=== PATIENT | female | born 1935 | race African-American/Black ===

== ENCOUNTER 2017-06-22 10:13 | Inpatient (IN) | payer OTHER, MEDICARE ==
[2017-06-22 11:49] LABS: BILIRUBIN,URINE SMALL (NEG); CLARITY,URINE CLEAR; COLOR,URINE ORANGE; GLUCOSE,URINE NEGATIVE (NEG); NITRITE,URINE POSITIVE (NEG); PROTEIN,URINE >=300 mg/dL (NEG-TRACE)
[2017-06-22 12:00] LABS: RBC,URINE TNTC /HPF (0-2)
[2017-06-22 12:01] LABS: BACTERIA,URINE 0 /HPF (0-FEW)
[2017-06-22] MEDS: IV NORMAL SALINE 1000ML BAG 1,000 ML IV (12:10)
[2017-06-22 12:16] LABS: ADD MAN DIFF? NO
[2017-06-22 12:19] LABS: BASO % 0 % (0-3); EOS % 0 % (0-3); HEMATOCRIT 28.3 % (36.0-47.0); LYMPH # 3.2 x10^3/uL (1.0-4.8); LYMPH % 52 % (24-48); MEAN CORPUSCULAR HEMOGLOBIN 28 pg (25-35); MEAN CORPUSCULAR HGB CONC 32 g/dL (31-37); MEAN CORPUSCULAR VOLUME 88 fL (79-100); MONO # 0.7 x10^3/uL (0.0-1.1); MONO % 12 % (0-9); NEUT # 2.2 x10^3uL (1.8-7.7); NEUT % 36 % (31-73); PLATELET COUNT 110 x10^3/uL (140-400); RED BLOOD COUNT 3.22 x10^6/uL (3.50-5.40); RED CELL DISTRIBUTION WIDTH 20.1 % (11.5-14.5); WHITE BLOOD COUNT 6.2 x10^3/uL (4.0-11.0)
[2017-06-22 12:28] LABS: INR 1.8 (0.8-1.1); PROTHROMBIN TIME PATIENT 19.9 SEC (11.7-14.0)
[2017-06-22 12:39] LABS: ANION GAP 9 (6-14); BLOOD UREA NITROGEN 18 mg/dL (7-20); CALCIUM 8.5 mg/dL (8.5-10.1); CARBON DIOXIDE 28 mmol/L (21-32); CHLORIDE 102 mmol/L (98-107); GFR 64.2; GLUCOSE 108 mg/dL (70-99); POTASSIUM 3.4 mmol/L (3.5-5.1); SODIUM 139 mmol/L (136-145)
[2017-06-22 12:44] LABS: ALBUMIN 2.7 g/dL (3.4-5.0); ALK PHOS 49 U/L (46-116); ALT (SGPT) 21 U/L (14-59); AST (SGOT) 30 U/L (15-37); DIRECT BILIRUBIN 0.1 mg/dL (0.0-0.2); LIPASE 195 U/L (73-393); MAGNESIUM 1.6 mg/dL (1.8-2.4); TOTAL BILIRUBIN 0.4 mg/dL (0.2-1.0); TOTAL PROTEIN 5.8 g/dL (6.4-8.2)
[2017-06-22 12:45] LABS: TROPONINI 0.036 ng/mL (0.000-0.055)
[2017-06-22 12:54] LABS: CKMB MASS 0.7 ng/mL (0.0-3.6); CREATINE KINASE 64 U/L (26-192)
[2017-06-22 12:54] LABS: NT-PRO BNP 78 pg/mL (0-449)
[2017-06-22] MEDS: PHENAZOPYRIDINE 200 MG TABLET. PO (13:42)
[2017-06-22] MEDS: fentaNYL PF VIAL 100 MCG/2 ML VIAL IV (13:43)
[2017-06-22] MEDS ORDERED: ONDANSETRON PF 4 MG/2 ML VIAL. IV (14:00)
[2017-06-22] MEDS ORDERED: MEROPENEM 1 GM in IV NORMAL SALINE 100ML 100 ML IV (14:00)
[2017-06-22 14:29] LABS: % EOS 1 % (0-5); ANISOCYTOSIS SLIGHT; OVALOCYTES OCC; PLT ESTIMATE DECREASED (ADEQUATE); POLYCHROMASIA SLIGHT; SCHISTOCYTES OCC
[2017-06-22 14:30] LABS: % SEGS 45 % (35-66)
[2017-06-22 14:31] LABS: % LYMPHS 43 % (24-48); % MONOS 11 % (0-10)
[2017-06-22] MEDS: ASPIRIN 325 MG TABLET PO (15:02)
[2017-06-22 15:52] LABS: POC GLUCOSE 84 mg/dL (70-99)
[2017-06-22] MEDS ORDERED: NON FORMULARY ITEM (Albuterol Sulfate (Proair Hfa Inhaler) 1 PUFF) INH (17:00)
[2017-06-22] MEDS ORDERED: MAGNESIUM HYDROXIDE 2,400 MG/30 ML ORAL.SUSP. PO (17:00)
[2017-06-22] MEDS: metFORMIN 500 MG TABLET PO (17:23)
[2017-06-22] MEDS: ACETAMINOPHEN 500 MG TABLET PO (17:24)
[2017-06-22] MEDS: CARVEDILOL 12.5 MG TABLET. PO (17:24)
[2017-06-22] MEDS: WARFARIN 5 MG TABLET. PO (17:25)
[2017-06-22] MEDS: INSULIN ASPART 300 UNITS/3 ML INSULN.PEN SQ (17:31)
[2017-06-22 20:27] LABS: POC GLUCOSE 96 mg/dL (70-99)
[2017-06-22] MEDS: traZODone 50 MG TABLET. PO (20:51)
[2017-06-22] MEDS: POLYVINYL ALCOHOL 1.4% OPHTH SOLUTION 15ML BOTTLE. OU (20:51)
[2017-06-22] MEDS: GABAPENTIN 100 MG CAPSULE. PO (20:51)
[2017-06-22] MEDS: INSULIN DETEMIR 300 UNITS/3 ML INSULN.PEN. SQ (20:52)
[2017-06-23] MEDS: PHENAZOPYRIDINE 200 MG TABLET. PO (03:19)
[2017-06-23] MEDS: ACETAMINOPHEN 500 MG TABLET PO (03:19)
[2017-06-23 05:17] LABS: ADD MAN DIFF? NO
[2017-06-23 05:34] LABS: BASO % 0 % (0-3); EOS % 0 % (0-3); HEMATOCRIT 25.8 % (36.0-47.0); HEMOGLOBIN 8.3 g/dL (12.0-15.5); LYMPH # 3.3 x10^3/uL (1.0-4.8); LYMPH % 52 % (24-48); MEAN CORPUSCULAR HEMOGLOBIN 28 pg (25-35); MEAN CORPUSCULAR HGB CONC 32 g/dL (31-37); MEAN CORPUSCULAR VOLUME 88 fL (79-100); MONO # 0.8 x10^3/uL (0.0-1.1); MONO % 12 % (0-9); NEUT # 2.2 x10^3uL (1.8-7.7); NEUT % 35 % (31-73); PLATELET COUNT 104 x10^3/uL (140-400); RED BLOOD COUNT 2.93 x10^6/uL (3.50-5.40); WHITE BLOOD COUNT 6.3 x10^3/uL (4.0-11.0)
[2017-06-23 05:52] LABS: ALBUMIN 2.4 g/dL (3.4-5.0); ALBUMIN/GLOBULIN RATIO 0.7 (1.0-1.7); ALK PHOS 45 U/L (46-116); ALT (SGPT) 20 U/L (14-59); ANION GAP 8 (6-14); AST (SGOT) 28 U/L (15-37); BLOOD UREA NITROGEN 17 mg/dL (7-20); BUN/CREATININE RATIO 14 (6-20); CALCIUM 8.2 mg/dL (8.5-10.1); CARBON DIOXIDE 27 mmol/L (21-32); CHLORIDE 106 mmol/L (98-107); CREATININE 1.2 mg/dL (0.6-1.0); GLUCOSE 97 mg/dL (70-99); POTASSIUM 3.1 mmol/L (3.5-5.1); SODIUM 141 mmol/L (136-145); TOTAL BILIRUBIN 0.3 mg/dL (0.2-1.0); TOTAL PROTEIN 5.7 g/dL (6.4-8.2)
[2017-06-23] MEDS: INSULIN ASPART 300 UNITS/3 ML INSULN.PEN SQ ×3 (07:30→16:30)
[2017-06-23 07:49] LABS: POC GLUCOSE 103 mg/dL (70-99)
[2017-06-23] MEDS: metFORMIN 500 MG TABLET PO ×2 (07:53→16:44)
[2017-06-23] MEDS: PANTOPRAZOLE 40 MG TABLET.DR. PO (07:53)
[2017-06-23] MEDS: POTASSIUM CHLORIDE 20 MEQ TABLET.ER. PO (07:54)
[2017-06-23] MEDS: CARVEDILOL 12.5 MG TABLET. PO ×2 (07:54→16:45)
[2017-06-23] MEDS: POLYVINYL ALCOHOL 1.4% OPHTH SOLUTION 15ML BOTTLE. OU ×3 (09:15→20:35)
[2017-06-23] MEDS: hydroCHLOROthiazide 25 MG TABLET PO (09:16)
[2017-06-23] MEDS: LISINOPRIL 20 MG TABLET PO (09:16)
[2017-06-23] MEDS: predniSONE 10 MG TABLET PO (09:16)
[2017-06-23] MEDS: GABAPENTIN 100 MG CAPSULE. PO ×3 (09:17→20:36)
[2017-06-23] MEDS: MONTELUKAST SODIUM 10 MG TABLET. PO (09:17)
[2017-06-23] MEDS: amLODIPine BESYLATE 10 MG TABLET PO (09:17)
[2017-06-23] MEDS: valACYclovir 500 MG TABLET. PO (09:17)
[2017-06-23] MEDS: RALOXIFENE 60 MG TABLET. PO (09:17)
[2017-06-23] MEDS: NYSTATIN TOPICAL POWDER 15GM BOTTLE. TP ×2 (09:54→20:36)
[2017-06-23 11:26] LABS: POC GLUCOSE 176 mg/dL (70-99)
[2017-06-23] MEDS: HYDROcodone/APAP 5/325MG 1 TAB TABLET PO ×2 (13:49→20:33)
[2017-06-23] MEDS: FLUCONAZOLE 100 MG TABLET. PO (13:49)
[2017-06-23 16:17] LABS: POC GLUCOSE 150 mg/dL (70-99)
[2017-06-23] MEDS: WARFARIN 5 MG TABLET. PO (16:45)
[2017-06-23] MEDS: FERROUS SULFATE 325 MG TABLET. PO (16:45)
[2017-06-23] MEDS: ALBUTEROL SULFATE 2.5 MG/3 ML NEBU. NEB (18:31)
[2017-06-23] MEDS: LACTOBACILLUS RHAMNOSUS GG 1 CAPSULE. PO (20:35)
[2017-06-23] MEDS: traZODone 50 MG TABLET. PO (20:36)
[2017-06-23] MEDS: INSULIN DETEMIR 300 UNITS/3 ML INSULN.PEN. SQ (20:43)
[2017-06-23 20:46] LABS: POC GLUCOSE 158 mg/dL (70-99)
[2017-06-24] MEDS: PHENAZOPYRIDINE 200 MG TABLET. PO ×3 (03:10→20:57)
[2017-06-24 04:36] LABS: ADD MAN DIFF? NO
[2017-06-24 05:12] LABS: BASO % 0 % (0-3); EOS % 0 % (0-3); HEMOGLOBIN 7.5 g/dL (12.0-15.5); LYMPH # 2.9 x10^3/uL (1.0-4.8); LYMPH % 58 % (24-48); MEAN CORPUSCULAR HEMOGLOBIN 27 pg (25-35); MEAN CORPUSCULAR HGB CONC 31 g/dL (31-37); MEAN CORPUSCULAR VOLUME 88 fL (79-100); MONO # 0.6 x10^3/uL (0.0-1.1); MONO % 11 % (0-9); NEUT # 1.5 x10^3uL (1.8-7.7); NEUT % 30 % (31-73); PLATELET COUNT 111 x10^3/uL (140-400); RED BLOOD COUNT 2.73 x10^6/uL (3.50-5.40)
[2017-06-24 05:19] LABS: INR 1.8 (0.8-1.1); PROTHROMBIN TIME PATIENT 20.5 SEC (11.7-14.0)
[2017-06-24 05:34] LABS: ANION GAP 7 (6-14); BLOOD UREA NITROGEN 17 mg/dL (7-20); CALCIUM 7.9 mg/dL (8.5-10.1); CARBON DIOXIDE 27 mmol/L (21-32); CHLORIDE 104 mmol/L (98-107); CREATININE 1.2 mg/dL (0.6-1.0); GLUCOSE 133 mg/dL (70-99); POTASSIUM 3.2 mmol/L (3.5-5.1); SODIUM 138 mmol/L (136-145)
[2017-06-24] MEDS: PANTOPRAZOLE 40 MG TABLET.DR. PO (07:22)
[2017-06-24 08:05] LABS: POC GLUCOSE 113 mg/dL (70-99)
[2017-06-24] MEDS: RALOXIFENE 60 MG TABLET. PO (08:12)
[2017-06-24] MEDS: POTASSIUM CHLORIDE 20 MEQ TABLET.ER. PO ×2 (08:12→17:21)
[2017-06-24] MEDS: metFORMIN 500 MG TABLET PO ×2 (08:13→17:22)
[2017-06-24] MEDS: LACTOBACILLUS RHAMNOSUS GG 1 CAPSULE. PO ×2 (08:13→20:58)
[2017-06-24] MEDS: amLODIPine BESYLATE 10 MG TABLET PO (08:13)
[2017-06-24] MEDS: LISINOPRIL 20 MG TABLET PO (08:13)
[2017-06-24] MEDS: FERROUS SULFATE 325 MG TABLET. PO (08:13)
[2017-06-24] MEDS: GABAPENTIN 100 MG CAPSULE. PO ×3 (08:13→20:57)
[2017-06-24] MEDS: valACYclovir 500 MG TABLET. PO (08:14)
[2017-06-24] MEDS: POLYVINYL ALCOHOL 1.4% OPHTH SOLUTION 15ML BOTTLE. OU ×3 (08:14→21:04)
[2017-06-24] MEDS: MONTELUKAST SODIUM 10 MG TABLET. PO (08:14)
[2017-06-24] MEDS: CARVEDILOL 12.5 MG TABLET. PO ×2 (08:14→17:21)
[2017-06-24] MEDS: NYSTATIN TOPICAL POWDER 15GM BOTTLE. TP ×2 (08:14→20:58)
[2017-06-24] MEDS: INSULIN ASPART 300 UNITS/3 ML INSULN.PEN SQ ×3 (08:26→17:28)
[2017-06-24] MEDS: predniSONE 10 MG TABLET PO (08:29)
[2017-06-24] MEDS: hydroCHLOROthiazide 25 MG TABLET PO (09:44)
[2017-06-24] MEDS: ALBUTEROL SULFATE 2.5 MG/3 ML NEBU. NEB (10:19)
[2017-06-24] MEDS: HYDROcodone/APAP 5/325MG 1 TAB TABLET PO (11:51)
[2017-06-24 11:57] LABS: POC GLUCOSE 144 mg/dL (70-99)
[2017-06-24] MEDS: WARFARIN 5 MG TABLET. PO (17:22)
[2017-06-24 17:39] LABS: POC GLUCOSE 160 mg/dL (70-99)
[2017-06-24 20:26] LABS: POC GLUCOSE 122 mg/dL (70-99)
[2017-06-24] MEDS: traZODone 50 MG TABLET. PO (20:58)
[2017-06-24] MEDS: INSULIN DETEMIR 300 UNITS/3 ML INSULN.PEN. SQ (21:03)
[2017-06-25] MEDS: ACETAMINOPHEN 500 MG TABLET PO (02:33)
[2017-06-25] MEDS: ALBUTEROL SULFATE 2.5 MG/3 ML NEBU. NEB (06:02)
[2017-06-25 06:49] LABS: ANION GAP 7 (6-14); BLOOD UREA NITROGEN 16 mg/dL (7-20); CALCIUM 8.2 mg/dL (8.5-10.1); CARBON DIOXIDE 26 mmol/L (21-32); CHLORIDE 106 mmol/L (98-107); CREATININE 1.3 mg/dL (0.6-1.0); GFR 47.5; GLUCOSE 96 mg/dL (70-99); POTASSIUM 3.6 mmol/L (3.5-5.1); SODIUM 139 mmol/L (136-145)
[2017-06-25] MEDS: INSULIN ASPART 300 UNITS/3 ML INSULN.PEN SQ ×3 (07:30→17:22)
[2017-06-25 07:41] LABS: POC GLUCOSE 89 mg/dL (70-99)
[2017-06-25] MEDS: PHENAZOPYRIDINE 200 MG TABLET. PO ×3 (08:10→20:30)
[2017-06-25] MEDS: predniSONE 10 MG TABLET PO (08:10)
[2017-06-25] MEDS: valACYclovir 500 MG TABLET. PO (08:10)
[2017-06-25] MEDS: FERROUS SULFATE 325 MG TABLET. PO (08:10)
[2017-06-25] MEDS: RALOXIFENE 60 MG TABLET. PO (08:10)
[2017-06-25] MEDS: metFORMIN 500 MG TABLET PO (08:11)
[2017-06-25] MEDS: amLODIPine BESYLATE 10 MG TABLET PO (08:11)
[2017-06-25] MEDS: MONTELUKAST SODIUM 10 MG TABLET. PO (08:11)
[2017-06-25] MEDS: POTASSIUM CHLORIDE 20 MEQ TABLET.ER. PO ×2 (08:11→17:17)
[2017-06-25] MEDS: LISINOPRIL 20 MG TABLET PO (08:11)
[2017-06-25] MEDS: LACTOBACILLUS RHAMNOSUS GG 1 CAPSULE. PO ×2 (08:12→20:29)
[2017-06-25] MEDS: NYSTATIN TOPICAL POWDER 15GM BOTTLE. TP ×2 (08:12→20:30)
[2017-06-25] MEDS: PANTOPRAZOLE 40 MG TABLET.DR. PO (08:12)
[2017-06-25] MEDS: GABAPENTIN 100 MG CAPSULE. PO ×3 (08:12→20:29)
[2017-06-25] MEDS: hydroCHLOROthiazide 25 MG TABLET PO (08:12)
[2017-06-25] MEDS: POLYVINYL ALCOHOL 1.4% OPHTH SOLUTION 15ML BOTTLE. OU ×3 (08:12→20:29)
[2017-06-25] MEDS: CARVEDILOL 12.5 MG TABLET. PO ×2 (08:12→17:17)
[2017-06-25 11:40] LABS: POC GLUCOSE 155 mg/dL (70-99)
[2017-06-25] MEDS: traMADol 50 MG TABLET PO ×2 (14:03→20:00)
[2017-06-25 14:11] LABS: CLARITY,URINE CLOUDY
[2017-06-25 14:22] LABS: COLOR,URINE ORANGE
[2017-06-25 14:25] LABS: BACTERIA,URINE 0 /HPF (0-FEW); RBC,URINE TNTC /HPF (0-2)
[2017-06-25] MEDS ORDERED: CONTRAST GIVEN MC (14:30)
[2017-06-25] MEDS: IOHEXOL 300 MG/ML 100ML VIAL. IV (15:02)
[2017-06-25] MEDS: WARFARIN 5 MG TABLET. PO (15:22)
[2017-06-25 16:39] LABS: POC GLUCOSE 129 mg/dL (70-99)
[2017-06-25 20:23] LABS: POC GLUCOSE 147 mg/dL (70-99)
[2017-06-25] MEDS: traZODone 50 MG TABLET. PO (20:30)
[2017-06-25] MEDS: INSULIN DETEMIR 300 UNITS/3 ML INSULN.PEN. SQ (20:34)
[2017-06-26] MEDS: ACETAMINOPHEN 500 MG TABLET PO ×3 (02:06→15:40)
[2017-06-26] MEDS: traMADol 50 MG TABLET PO ×3 (02:06→15:40)
[2017-06-26] MEDS: INSULIN ASPART 300 UNITS/3 ML INSULN.PEN SQ ×3 (07:30→17:18)
[2017-06-26 07:41] LABS: HEMATOCRIT 24.7 % (36.0-47.0); HEMOGLOBIN 7.8 g/dL (12.0-15.5); MEAN CORPUSCULAR HEMOGLOBIN 28 pg (25-35); MEAN CORPUSCULAR HGB CONC 32 g/dL (31-37); MEAN CORPUSCULAR VOLUME 88 fL (79-100); PLATELET COUNT 125 x10^3/uL (140-400); RED CELL DISTRIBUTION WIDTH 20.7 % (11.5-14.5); WHITE BLOOD COUNT 5.1 x10^3/uL (4.0-11.0)
[2017-06-26] MEDS: ALBUTEROL SULFATE 2.5 MG/3 ML NEBU. NEB (07:52)
[2017-06-26 07:54] LABS: INR 1.9 (0.8-1.1); PROTHROMBIN TIME PATIENT 21.4 SEC (11.7-14.0)
[2017-06-26] MEDS: POTASSIUM CHLORIDE 20 MEQ TABLET.ER. PO ×2 (08:00→17:00)
[2017-06-26 08:02] LABS: POC GLUCOSE 86 mg/dL (70-99)
[2017-06-26 08:03] LABS: ANION GAP 6 (6-14); BLOOD UREA NITROGEN 15 mg/dL (7-20); CALCIUM 8.3 mg/dL (8.5-10.1); CARBON DIOXIDE 27 mmol/L (21-32); CHLORIDE 104 mmol/L (98-107); GFR 64.2; GLUCOSE 92 mg/dL (70-99); POTASSIUM 3.8 mmol/L (3.5-5.1); SODIUM 137 mmol/L (136-145)
[2017-06-26] MEDS: FERROUS SULFATE 325 MG TABLET. PO (08:08)
[2017-06-26] MEDS: PANTOPRAZOLE 40 MG TABLET.DR. PO (08:08)
[2017-06-26] MEDS: CARVEDILOL 12.5 MG TABLET. PO ×2 (08:10→17:14)
[2017-06-26] MEDS: hydroCHLOROthiazide 25 MG TABLET PO (08:42)
[2017-06-26] MEDS: RALOXIFENE 60 MG TABLET. PO (08:42)
[2017-06-26] MEDS: LACTOBACILLUS RHAMNOSUS GG 1 CAPSULE. PO ×2 (08:42→20:18)
[2017-06-26] MEDS: POLYVINYL ALCOHOL 1.4% OPHTH SOLUTION 15ML BOTTLE. OU ×3 (08:42→20:17)
[2017-06-26] MEDS: PHENAZOPYRIDINE 200 MG TABLET. PO ×3 (08:42→20:17)
[2017-06-26] MEDS: GABAPENTIN 100 MG CAPSULE. PO ×3 (08:42→20:18)
[2017-06-26] MEDS: NYSTATIN TOPICAL POWDER 15GM BOTTLE. TP ×2 (08:42→20:17)
[2017-06-26] MEDS: predniSONE 10 MG TABLET PO (08:43)
[2017-06-26] MEDS: MONTELUKAST SODIUM 10 MG TABLET. PO (08:43)
[2017-06-26] MEDS: LISINOPRIL 20 MG TABLET PO (08:43)
[2017-06-26] MEDS: amLODIPine BESYLATE 10 MG TABLET PO (08:43)
[2017-06-26] MEDS: valACYclovir 500 MG TABLET. PO (08:43)
[2017-06-26 11:51] LABS: POC GLUCOSE 146 mg/dL (70-99)
[2017-06-26] MEDS: WARFARIN 5 MG TABLET. PO (15:39)
[2017-06-26 16:54] LABS: POC GLUCOSE 207 mg/dL (70-99)
[2017-06-26] MEDS: LIDOCAINE 2% TOPICAL JELLY 5GM TUBE. TP (19:23)
[2017-06-26] MEDS: OPIUM/BELLADONNA 30/16.2MG SUPP.RECT. PR (19:23)
[2017-06-26] MEDS: traZODone 50 MG TABLET. PO (20:18)
[2017-06-26] MEDS: INSULIN DETEMIR 300 UNITS/3 ML INSULN.PEN. SQ (20:25)
[2017-06-26 20:42] LABS: POC GLUCOSE 189 mg/dL (70-99)
[2017-06-27] MEDS: ACETAMINOPHEN 500 MG TABLET PO ×4 (01:32→21:47)
[2017-06-27] MEDS: traMADol 50 MG TABLET PO ×4 (01:32→21:47)
[2017-06-27] MEDS: INSULIN ASPART 300 UNITS/3 ML INSULN.PEN SQ ×3 (07:30→17:13)
[2017-06-27] MEDS: PANTOPRAZOLE 40 MG TABLET.DR. PO (07:53)
[2017-06-27] MEDS: FERROUS SULFATE 325 MG TABLET. PO (07:53)
[2017-06-27] MEDS: CARVEDILOL 12.5 MG TABLET. PO ×2 (07:57→17:08)
[2017-06-27] MEDS: POTASSIUM CHLORIDE 20 MEQ TABLET.ER. PO ×2 (07:59→17:00)
[2017-06-27] MEDS: LIDOCAINE 2% TOPICAL JELLY 5GM TUBE. TP (07:59)
[2017-06-27] MEDS: OPIUM/BELLADONNA 30/16.2MG SUPP.RECT. PR (07:59)
[2017-06-27 08:01] LABS: POC GLUCOSE 150 mg/dL (70-99)
[2017-06-27] MEDS: PHENAZOPYRIDINE 200 MG TABLET. PO ×3 (09:09→21:46)
[2017-06-27] MEDS: hydroCHLOROthiazide 25 MG TABLET PO (09:10)
[2017-06-27] MEDS: NYSTATIN TOPICAL POWDER 15GM BOTTLE. TP ×2 (09:10→21:47)
[2017-06-27] MEDS: MONTELUKAST SODIUM 10 MG TABLET. PO (09:10)
[2017-06-27] MEDS: POLYVINYL ALCOHOL 1.4% OPHTH SOLUTION 15ML BOTTLE. OU ×3 (09:10→21:00)
[2017-06-27] MEDS: predniSONE 10 MG TABLET PO (09:11)
[2017-06-27] MEDS: LACTOBACILLUS RHAMNOSUS GG 1 CAPSULE. PO ×2 (09:11→21:47)
[2017-06-27] MEDS: GABAPENTIN 100 MG CAPSULE. PO ×3 (09:11→21:47)
[2017-06-27] MEDS: LISINOPRIL 20 MG TABLET PO (09:11)
[2017-06-27] MEDS: RALOXIFENE 60 MG TABLET. PO (09:11)
[2017-06-27] MEDS: amLODIPine BESYLATE 10 MG TABLET PO (09:11)
[2017-06-27] MEDS: valACYclovir 500 MG TABLET. PO (09:11)
[2017-06-27 11:55] LABS: POC GLUCOSE 188 mg/dL (70-99)
[2017-06-27] MEDS: WARFARIN 5 MG TABLET. PO (16:00)
[2017-06-27 17:43] LABS: POC GLUCOSE 168 mg/dL (70-99)
[2017-06-27] MEDS: traZODone 50 MG TABLET. PO (21:47)
[2017-06-27] MEDS: INSULIN DETEMIR 300 UNITS/3 ML INSULN.PEN. SQ (21:48)
[2017-06-27 21:58] LABS: POC GLUCOSE 178 mg/dL (70-99)
[2017-06-28] MEDS: ACETAMINOPHEN 500 MG TABLET PO ×2 (05:13→14:29)
[2017-06-28] MEDS: traMADol 50 MG TABLET PO (05:13)
[2017-06-28 05:43] LABS: BASO % 0 % (0-3); EOS # 0.1 x10^3/uL (0.0-0.7); EOS % 1 % (0-3); HEMATOCRIT 26.6 % (36.0-47.0); HEMOGLOBIN 8.4 g/dL (12.0-15.5); LYMPH # 3.4 x10^3/uL (1.0-4.8); LYMPH % 45 % (24-48); MEAN CORPUSCULAR HEMOGLOBIN 28 pg (25-35); MEAN CORPUSCULAR HGB CONC 32 g/dL (31-37); MEAN CORPUSCULAR VOLUME 88 fL (79-100); MONO # 0.8 x10^3/uL (0.0-1.1); MONO % 11 % (0-9); NEUT # 3.3 x10^3uL (1.8-7.7); NEUT % 43 % (31-73); PLATELET COUNT 150 x10^3/uL (140-400); RED BLOOD COUNT 3.03 x10^6/uL (3.50-5.40); RED CELL DISTRIBUTION WIDTH 20.4 % (11.5-14.5); WHITE BLOOD COUNT 7.5 x10^3/uL (4.0-11.0)
[2017-06-28 05:47] LABS: INR 1.5 (0.8-1.1); PROTHROMBIN TIME PATIENT 17.8 SEC (11.7-14.0)
[2017-06-28 06:01] LABS: ADD MAN DIFF? YES
[2017-06-28 06:04] LABS: ANION GAP 5 (6-14); BLOOD UREA NITROGEN 18 mg/dL (7-20); CALCIUM 8.5 mg/dL (8.5-10.1); CARBON DIOXIDE 29 mmol/L (21-32); CHLORIDE 101 mmol/L (98-107); CREATININE 1.1 mg/dL (0.6-1.0); GFR 57.5; GLUCOSE 116 mg/dL (70-99); POTASSIUM 3.4 mmol/L (3.5-5.1); SODIUM 135 mmol/L (136-145)
[2017-06-28] MEDS: INSULIN ASPART 300 UNITS/3 ML INSULN.PEN SQ ×3 (07:30→17:29)
[2017-06-28 07:57] LABS: POC GLUCOSE 118 mg/dL (70-99)
[2017-06-28] MEDS: PHENAZOPYRIDINE 200 MG TABLET. PO ×2 (08:57→14:30)
[2017-06-28] MEDS: PANTOPRAZOLE 40 MG TABLET.DR. PO (08:57)
[2017-06-28] MEDS: RALOXIFENE 60 MG TABLET. PO (08:57)
[2017-06-28] MEDS: amLODIPine BESYLATE 10 MG TABLET PO (08:57)
[2017-06-28] MEDS: valACYclovir 500 MG TABLET. PO (08:57)
[2017-06-28] MEDS: metFORMIN 500 MG TABLET PO ×2 (08:58→17:33)
[2017-06-28] MEDS: POTASSIUM CHLORIDE 20 MEQ TABLET.ER. PO ×2 (08:58→17:33)
[2017-06-28] MEDS: LACTOBACILLUS RHAMNOSUS GG 1 CAPSULE. PO (08:58)
[2017-06-28] MEDS: MONTELUKAST SODIUM 10 MG TABLET. PO (08:58)
[2017-06-28] MEDS: predniSONE 10 MG TABLET PO (08:58)
[2017-06-28] MEDS: FERROUS SULFATE 325 MG TABLET. PO (08:58)
[2017-06-28] MEDS: hydroCHLOROthiazide 25 MG TABLET PO (08:58)
[2017-06-28] MEDS: GABAPENTIN 100 MG CAPSULE. PO ×2 (08:58→14:30)
[2017-06-28] MEDS: LISINOPRIL 20 MG TABLET PO (08:59)
[2017-06-28] MEDS: CARVEDILOL 12.5 MG TABLET. PO ×2 (09:00→18:10)
[2017-06-28] MEDS: NYSTATIN TOPICAL POWDER 15GM BOTTLE. TP (09:11)
[2017-06-28] MEDS: POLYVINYL ALCOHOL 1.4% OPHTH SOLUTION 15ML BOTTLE. OU ×2 (09:11→14:31)
[2017-06-28 11:03] LABS: % ATYL 3 % (0-0); % BANDS 1 % (0-9); % EOS 1 % (0-5); % LYMPHS 50 % (24-48); % MONOS 8 % (0-10); % SEGS 37 % (35-66)
[2017-06-28 11:04] LABS: SMUDGE CELLS PRESENT
[2017-06-28 11:06] LABS: ANISOCYTOSIS MOD; PLT ESTIMATE ADEQUATE (ADEQUATE); POLYCHROMASIA SLIGHT
[2017-06-28 11:07] LABS: POIKILOCYTOSIS SLIGHT
[2017-06-28 11:08] LABS: BIZZARE CELLS FEW; TEAR DROP CELLS FEW
[2017-06-28 11:26] LABS: POC GLUCOSE 171 mg/dL (70-99)
[2017-06-28] MEDS: OPIUM/BELLADONNA 30/16.2MG SUPP.RECT. PR (12:09)
[2017-06-28 16:21] LABS: POC GLUCOSE 212 mg/dL (70-99)
[2017-06-28] MEDS ORDERED: HEPARIN PF 500 UNIT/5 ML DISP.SYRIN. IV (18:45)
== END 2017-06-28 19:00 | disposition home or self-care (01) | DRG 872 ==
LOC: ER 10:13 → 5 NORTH 13:43
DX: A41.59 Other Gram-negative sepsis (principal); E44.0 Moderate protein-calorie malnutrition; D69.6 Thrombocytopenia, unspecified; E83.42 Hypomagnesemia; G61.81 Chronic inflammatory demyelinating polyneuritis; N13.4 Hydroureter; Z68.41 Body mass index [BMI] 40.0-44.9, adult; N30.01 Acute cystitis with hematuria; J44.9 Chronic obstructive pulmonary disease, unspecified; D64.9 Anemia, unspecified; E11.9 Type 2 diabetes mellitus without complications; E66.9 Obesity, unspecified; E87.6 Hypokalemia; H40.9 Unspecified glaucoma; I10 Essential (primary) hypertension; K21.9 Gastro-esophageal reflux disease without esophagitis; N32.89 Other specified disorders of bladder; Z79.01 Long term (current) use of anticoagulants; Z79.4 Long term (current) use of insulin; Z85.6 Personal history of leukemia; Z85.72 Personal history of non-Hodgkin lymphomas; Z86.718 Personal history of other venous thrombosis and embolism; Z88.0 Allergy status to penicillin; Z90.49 Acquired absence of other specified parts of digestive tract; Z88.8 Allergy status to other drugs, medicaments and biological substances; Z92.21 Personal history of antineoplastic chemotherapy
CPT/HCPCS: 36415; 71045; 74170; 80048; 80053; 80076; 81001; 82553; 82962; 83690; 83735; 83880; 84484; 85007; 85025; 85027; 85610; 87086; 93005; 94640; 94760; 96361; 96365; 96366; 97110-GP; 97116-GP; 97161-GP; 97166-GO; 97530-GO; 97535-GO; 99285; 99285-25; J1815; J1956; J3010; J7030; J7512; J7613; Q9967

== ENCOUNTER → 2017-10-26 | Outpatient (CLI) | payer OTHER | END | disposition home or self-care (01) | LOC: EKG 12:10 | DX: I11.9 Hypertensive heart disease without heart failure (principal); I45.10 Unspecified right bundle-branch block; C91.91 Lymphoid leukemia, unspecified, in remission; I10 Essential (primary) hypertension; E11.9 Type 2 diabetes mellitus without complications; J44.9 Chronic obstructive pulmonary disease, unspecified | CPT/HCPCS: 93005 ==